=== PATIENT | male | born 1995 | race Two or more races ===

== ENCOUNTER 2021-10-24 08:05 | Emergency (ER) | payer SELFPAY ==
[~2021-10-24] VITALS: Ht 188 cm; Wt 117.0 kg
[2021-10-24 08:34] VITALS: BP 139/68
[2021-10-24] MEDS ORDERED: FLUORESCEIN SOD OPTH TEST STRIP OP ONE (09:45)
[2021-10-24] MEDS ORDERED: CIP03OS RIGHTEYE (10:05)
== END 2021-10-24 10:15 | disposition home or self-care (01) ==
LOC: ER 08:05
DX: T15.01XA Foreign body in cornea, right eye, initial encounter (principal); W22.8XXA Striking against or struck by other objects, initial encounter; Y93.89 Activity, other specified; Y92.89 Other specified places as the place of occurrence of the external cause; Y99.8 Other external cause status
CPT/HCPCS: 65222